=== PATIENT | female | born 1945 | race Caucasian/White ===

== ENCOUNTER 2020-06-29 21:45 | Emergency (ER) | payer MEDICARE ==
[~2020-06-29] VITALS: Ht 154.9 cm; Wt 75.0 kg
[~2020-06-29 21:45] MED LIST: ALENDRONATE SOD35 MG OR; ALENDRONATE35 MG; BENICAR40 MG; BENICAR40 MG PO; BILBERRY; BILBERRY500 MG; CALCIUM 1200 OR; CIPROFLOXACN500 MG PO; E 10001000 UNIT; LUTEIN; NAPROSYN500 MG PO; PRILOSEC10 M1; ROCEPHIN 1 GM1 GM IM; TRICOR145 MG; TRICOR145 MG PO; VITAMIN D1000 UNIT; VITAMIN E PO; VYTORIN 10/401 TAB; VYTORIN 10/401 TAB PO; ZOSTAVAX SC; ZYRTEC1 MG/ML OR
[2020-06-29] MEDS ORDERED: HYZAAR1 TA1 PO (22:02)
[2020-06-29] MEDS ORDERED: SIMVASTATIN40 MG PO (22:02)
[2020-06-29 22:49] LABS: URINE BILIRUBIN - DIPSTICK NEGATIVE (NEGATIVE); URINE BLOOD DIPSTICK LARGE (NEGATIVE); URINE COLOR YELLOW; URINE GLUCOSE - DIPSTICK NEGATIVE (NEGATIVE); URINE KETONE NEGATIVE (NEGATIVE); URINE NITRITE - DIPSTICK NEGATIVE (Negative); URINE PROTEIN - DIPSTICK NEGATIVE (NEG-TRACE); URINE UROBILINOGEN - DIPSTICK 0.2 E.U./dL (0.2)
[2020-06-29 22:50] LABS: URINE LEUK ESTERASE SMALL (NEGATIVE)
[2020-06-29 23:02] LABS: URINE BACTERIA FEW hpf; URINE SQUAMOUS EPITHELIAL CELL FEW EPI/hpf (0-FEW)
[2020-06-29] MEDS ORDERED: CIPROFLOXACN500 MG PO (23:18)
[2020-06-29 23:52] VITALS: BP 141/77
== END 2020-06-30 00:03 | disposition home or self-care (01) ==
LOC: ED 21:45
PROVIDERS: Emergency Medicine
PROC: 0T9B70Z Drainage of Bladder with Drainage Device, Via Natural or Artificial Opening (ICD-10-PCS; principal; 2020-06-29)
DX: N39.0 Urinary tract infection, site not specified (principal); R33.9 Retention of urine, unspecified; B96.89 Other specified bacterial agents as the cause of diseases classified elsewhere; I10 Essential (primary) hypertension

== ENCOUNTER 2024-05-15 14:43 | Emergency (ER) | payer MEDICARE ==
[2024-05-15] VITALS (9 sets, daily range): BP systolic 112–130; BP diastolic 52–70
[~2024-05-15] VITALS: Ht 154.9 cm; Wt 70.0 kg
[~2024-05-15 14:43] MED LIST changes: +HYZAAR1 TA1 PO; +LIPOFEN150 MG PO; +NATURAL LUTEIN20 MG; +SIMVASTATIN40 MG PO; +TRAMADOL HCL50 MG PO; +[UNRECOGNIZED DRUG - CODE]
[2024-05-15 15:13] LABS: URINE BILIRUBIN - DIPSTICK Negative (NEGATIVE); URINE BLOOD DIPSTICK Moderate (NEGATIVE); URINE COLOR Yellow; URINE GLUCOSE - DIPSTICK Negative (NEGATIVE); URINE KETONE Negative (NEGATIVE); URINE LEUK ESTERASE Large (NEGATIVE); URINE NITRITE - DIPSTICK Negative (Negative); URINE PROTEIN - DIPSTICK 30 mg/dL (NEG-TRACE); URINE UROBILINOGEN - DIPSTICK 0.2 E.U./dL (0.2); URINE WBC >100 WBC/hpf (0-5)
[2024-05-15 15:13] LABS: BASO% 0.5 % (0-3); EOS% 2.9 % (0-8); HEMATOCRIT 39.8 % (37.0-47.0); HEMOGLOBIN 13.2 g/dl (12.0-16.0); IMMATURE GRANULOCYTES 0.2 % (0.0-5.0); LYMPH% 27.9 % (15-41); MEAN CELL VOLUME 91.9 fL CALC (80.0-100.0); MEAN CORPUSCULAR HGB 30.5 pG CALC (26.0-32.0); MEAN CORPUSCULAR HGB CONC 33.2 g/dL CAL (32.0-36.0); MONO% 12.8 % (2-13); NEUT# 6.38 thou/uL (2.00-7.15); NEUT% 55.7 % (42-76); RED BLOOD COUNT 4.33 mill/uL (4.20-5.60); RED CELL DISTRI WIDTH 12.4 % (11.5-15.5)
[2024-05-15 15:14] LABS: URINE BACTERIA FEW hpf
[2024-05-15] MEDS ORDERED: KETOROLAC TROMETHAMINE 30 MG/ML SDV IV ONE (15:25)
[2024-05-15 15:30] LABS: ALBUMIN 4.4 g/dL (3.2-5.0); BILIRUBIN, TOTAL 0.6 mg/dL (0.02-1.3)
[2024-05-15] MEDS ORDERED: CEPHALEXIN500 M1 PO (18:00)
[2024-05-15] MEDS ORDERED: CEPHALEXIN MONOHYDRATE 500 MG/CAP PO ONE (18:00)
== END 2024-05-15 18:22 | disposition home or self-care (01) ==
LOC: ED 14:43
PROVIDERS: Family Medicine
DX: N39.0 Urinary tract infection, site not specified (principal); N20.0 Calculus of kidney; I10 Essential (primary) hypertension; E78.00 Pure hypercholesterolemia, unspecified
CPT/HCPCS: Q9967